=== PATIENT | male | born 1960 | race African-American/Black ===

== ENCOUNTER 2018-07-23 14:34 | Emergency (ER) | payer OTHER ==
[~2018-07-23] VITALS: Ht 165.1 cm; Wt 56.7 kg
[2018-07-23 14:42] VITALS: BP 131/83
--- NOTE | 2018-07-23 14:42 | NUR ---
PT AMBULATES TO BED 7
--- NOTE | 2018-07-23 14:52 | NUR ---
PT C/O L ARM PAIN, PT STATES HE WAS LIFTING TRAYS AND HIT HIS L AC AREA, RADIATES UP TO CHEST. CMS INTACT. PT STATES WHEN THAT INCIDENT HAPPENED, HE FELT DIZZY FOR A FEW SECONDS. DENIES LOC AND VOMITING. PATIENT STATES PAIN OF 7/10 AT THIS TIME; VSS; PATIENT POSITIONED FOR COMFORT; HOB ELEVATED; BEDRAILS UP X1; BED DOWN. ER MD MADE AWARE OF PT STATUS.
--- NOTE | 2018-07-23 15:08 | NUR ---
XRAY AT BEDSIDE
--- NOTE | 2018-07-23 15:30 | NUR ---
JODI APPLIED BY DRE OSORIO ORDERED BY TJ BISHOP.
[2018-07-23 16:01] VITALS: BP 131/83
== END 2018-07-23 16:00 | disposition home or self-care (01) ==
LOC: MED 14:34
DX: S49.82XA Other specified injuries of left shoulder and upper arm, initial encounter (principal); X58.XXXA Exposure to other specified factors, initial encounter; Y93.89 Activity, other specified; Y92.89 Other specified places as the place of occurrence of the external cause; Y99.8 Other external cause status
CPT/HCPCS: 73080; 99283; Q0092